=== PATIENT | male | born 1995 | race Caucasian/White ===

== ENCOUNTER 2020-11-18 12:19 | Emergency (ER) | payer MEDICAID ==
[~2020-11-18] VITALS: Ht 177.8 cm; Wt 82.0 kg
[2020-11-18 12:35] VITALS: BP 151/77
[2020-11-18] MEDS ORDERED: ACETAMINOPHEN 325MG TABLET PO ONE (14:00)
== END 2020-11-18 14:33 | disposition home or self-care (01) ==
LOC: ER 12:44
DX: S00.521A Blister (nonthermal) of lip, initial encounter (principal); K13.70 Unspecified lesions of oral mucosa; X58.XXXA Exposure to other specified factors, initial encounter; Y93.89 Activity, other specified; Y92.89 Other specified places as the place of occurrence of the external cause; Y99.8 Other external cause status
CPT/HCPCS: 99282; 99283

== ENCOUNTER 2020-11-24 13:11 | Emergency (ER) | payer MEDICAID ==
[~2020-11-24] VITALS: Ht 177.8 cm; Wt 82.0 kg
[2020-11-24 14:29] VITALS: BP 126/77
== END 2020-11-24 14:32 | disposition home or self-care (01) ==
LOC: ER 13:29
DX: K13.79 Other lesions of oral mucosa (principal); K13.0 Diseases of lips
CPT/HCPCS: 99283